=== PATIENT | female | born 1955 ===

== ENCOUNTER → 2021-11-02 14:38 | Outpatient (BNVA) | payer MEDICARE, MEDICAID, SELFPAY | PROVIDERS: PCP Internal Medicine; Visit Provider Nurse Practitioner Family | DX: M96.1 Postlaminectomy syndrome, not elsewhere classified (principal); M51.37 Other intervertebral disc degeneration, lumbosacral region; G89.4 Chronic pain syndrome; N18.4 Chronic kidney disease, stage 4 (severe) | CPT/HCPCS: 99202 ==